=== PATIENT | male | born 1980 | race Caucasian/White ===

== ENCOUNTER 2025-01-09 13:58 | Emergency (ER) | payer SELFPAY ==
[~2025-01-09] VITALS: Ht 175.3 cm; Wt 91.0 kg
[2025-01-09 14:03] VITALS: O2SAT 96
[2025-01-09] MEDS ORDERED: LIDO-53 TP (15:17)
[2025-01-09] MEDS ORDERED: IBUP-2028 MT (15:17)
[2025-01-09] MEDS: KETOROLAC 30MG/ML VIAL IM ONE (15:29)
[2025-01-09] MEDS: LIDOCAINE 5% PATCH TOP SCH (15:29)
[2025-01-09 15:51] VITALS: BP 144/80; PULSE 95; RESP 18; TEMP 36.7; O2SAT 96
== END 2025-01-09 15:58 | disposition home or self-care (01) ==
LOC: ER 13:58
DX: R07.81 Pleurodynia (principal); I10 Essential (primary) hypertension; Z79.899 Other long term (current) drug therapy; Z98.890 Other specified postprocedural states
CPT/HCPCS: 99284; 71045; 73552; 72170; 96372; J1885